=== PATIENT | male | born 1975 | race African-American/Black ===

== ENCOUNTER 2022-01-16 10:45 | Emergency (ER) | payer OTHER, SELFPAY ==
[~2022-01-16 10:45] MED LIST: Iopamidol 370 76% 125 ML VIAL FS ONE; Sodium Chloride 0.9% 100 ML BAG ONE
[2022-01-16] MEDS ORDERED: Lactated Ringer's 1,000 ML ONE (11:30)
[2022-01-16] MEDS ORDERED: Ondansetron PF 4 MG/2 ML Vial ONE (11:30)
[2022-01-16] MEDS ORDERED: Morphine 4 MG/ML VIAL ONE ×3 (11:30→22:00)
[2022-01-16] MEDS ORDERED: Lidocaine Viscous Sol 2% 15 ml UD Cup ONE (11:30)
[2022-01-16] MEDS ORDERED: Mag-Al Plus 1200 MG/1200 MG/120 MG/30 ML UDCUP ONE (11:30)
[2022-01-16] MEDS ORDERED: Aspirin Chewable 81 MG TAB ONE (11:30)
[2022-01-16 12:05] LABS: ALT (SGPT) 15 U/L (8-55); AST (SGOT) 17 U/L (5-34); Albumin 3.9 g/dL (3.5-5.0); Alkaline Phosphatase 91 U/L (40-110); Anion Gap 13 mmol/L (10-20); BUN (Urea Nitrogen) 18 mg/dL (8.9-20.6); Calc. Creatinine Clearance 0 mL/min (70-130); Calcium 9.9 mg/dL (7.8-10.44); Carbon Dioxide 22 mmol/L (22-29); Chloride 103 mmol/L (98-107); Estimated GFR 72; Globulin 4.4 g/dL (2.4-3.5); Glucose 93 mg/dL (70-105); Hemoglobin 14.3 g/dL (14.0-18.0); Mean Corpuscular HGB CONC 31.9 g/dL (32.0-36.0); Mean Corpuscular Hemoglobin 29.1 pg (27.0-31.0); Mean Corpuscular Volume 91.1 fl (78.0-98.0); Mean Platelet Volume 7.4 fL (7.4-10.4); Platelet Count 330 10x3/uL (130-400); Potassium 4.4 mmol/L (3.5-5.1); Protein, Total 8.3 g/dL (6.0-8.3); RBC Distribution Width 12.9 % (11.5-14.5); Red Blood Cell (RBC) Count 4.92 mill/uL (4.70-6.10); Sodium 134 mmol/L (136-145); White Blood Cell (WBC) Count 28.9 10x3/uL (4.8-10.8)
[2022-01-16 12:06] LABS: Band 6 % (5-11); Lymphocytes 6 % (21-51); MDiff Complete? YES; Monocytes 9 % (0-10); Neutrophil 79 % (42-75); Platelet Morphology Comment Appears Adequate; RBC Morphology Normal
[2022-01-16 12:38] LABS: SARS-CoV-2 NAA Rapid Test Not Detected (NotDetected)
[2022-01-16 12:40] LABS: Lipase Less than 4 U/L (8-78)
[2022-01-16 13:37] LABS: INR-International Normal Ratio 1.3; Prothrombin Time 16.4 sec (12.0-14.7)
[2022-01-16 13:38] LABS: PTT 33.9 sec (22.9-36.1)
[2022-01-16] MEDS ORDERED: Enoxaparin Sodium 100 MG/ML SYRINGE ONE (14:36)
[2022-01-16] MEDS ORDERED: Piperacillin/Tazobactam 4.5 GM VIAL ONE (14:36)
[2022-01-16] MEDS ORDERED: Sodium Chloride 0.9% 100 ML ONE (14:36)
[2022-01-16 17:23] LABS: Bilirubin Small (Negative); Blood, Urine Negative (Negative); Glucose, Urine (Dipstick) Negative (Negative); Ketone, Urine 40 mg/dL (Negative); Leukocyte Negative (Negative); Nitrite Negative (Negative); Protein, Urine (Dipstick) 30 mg/dL (Neg-Trace); Specific Gravity, Urine 1.015 (1.005-1.030)
[2022-01-16 17:24] LABS: Clarity Hazy (Clear)
[2022-01-16 17:34] LABS: RBC/HPF 0-3 HPF (0-3); WBC/HPF 0-3 HPF (0-3)
[2022-01-16 17:35] LABS: Bacteria/HPF 1+ HPF (None Seen); Squamous Epithelial 0-3 HPF (0-3)
[2022-01-16] MEDS ORDERED: Azithromycin 500 MG VIAL ONE (21:24)
[2022-01-16] MEDS ORDERED: Sodium Chloride 0.9% 500 ML ONE (21:25)
== END 2022-01-16 23:15 | disposition short-term general hospital (02) ==
LOC: MADERS 10:45
DX: I26.99 Other pulmonary embolism without acute cor pulmonale (principal); I82.412 Acute embolism and thrombosis of left femoral vein; J18.9 Pneumonia, unspecified organism; I10 Essential (primary) hypertension; J45.909 Unspecified asthma, uncomplicated; Z20.822 Contact with and (suspected) exposure to COVID-19
CPT/HCPCS: 36415; 71275; 74177; 80053; 81003; 81015; 83605; 83690; 83880; 84443; 84484; 85025; 85379; 85610; 85730; 87040; 93005; 94760; 96365; 96367; 96372; 96375; 96376; J0456; J1650; J2270; J2405; J2543; J3490; J7030; J7120; Q9967